=== PATIENT | female | born 1950 | race Caucasian/White ===

== ENCOUNTER → 2019-11-01 | Outpatient (CLI) | payer MEDICARE, BC ==
--- NOTE | 2019-11-01 11:28 | CARD ---
MR#: [id number] Date of Study: 11/01/2019 Ordering Physician: VICKY FISHMAN, Referring Physician: VICKY FISHMAN, Tech: Na Brown APPROVED REPORT EXAM: Two-dimensional and M-mode echocardiogram with Doppler and color Doppler. Other Information Quality : Average INDICATION Cardiac Disease: CAD RISK FACTORS Hypertension Hyperlipidemia 2D DIMENSIONS RVDd2.5 (2.9-3.5cm)Left Atrium(2D)2.7 (1.6-4.0cm) IVSd0.9 (0.7-1.1cm)Aortic Root(2D)3.3 (2.0-3.7cm) LVDd4.8 (3.9-5.9cm)LVOT Diameter1.9 (1.8-2.4cm) PWd0.8 (0.7-1.1cm)LVDs3.2 (2.5-4.0cm) FS (%) 32.9 %SV65.0 ml LVEF(%)61.4 (>50%) Aortic Valve AoV Peak Luca.129.2cm/sAoV VTI30.2cm AO Peak GR.6.7mmHgLVOT Peak Luca.112.6cm/s LVOT VTI 25.45cmAO Mean GR.4mmHg YEVGENIY (VMAX)2.27ss7GYN (VTI)2.42cm2 AI P 1/2 Dctr264gw Mitral Valve MV E Nwhtjkxl85.6cm/sMV DECEL FOYZ185aa MV A Hqlzoilk89.5cm/sE/A Ratio0.7 Pulmonary Valve PV Peak Rngypqaq09.1cm/sPV Peak Grad.3mmHg Tricuspid Valve TR P. Yyabkhbt001bc/sRAP YMFOPITV3lcXg TR Peak Gr.74mcLiCPWZ97asSr Pulmonary Vein S1 Gyrgmumn09.0cm/sD2 Jscjkdxd36.8cm/s LEFT VENTRICLE The left ventricle is normal size. There is normal left ventricular wall thickness. The left ventricu lar systolic function is normal. The Ejection Fraction is 60-65%. There is normal LV segmental wall m otion. Transmitral Doppler flow pattern is Grade I-abnormal relaxation pattern. RIGHT VENTRICLE The right ventricle is normal size. There is normal right ventricular wall thickness. The right ventr icular systolic function is normal. ATRIA The left atrium size is normal. The right atrium size is normal. The interatrial septum is intact wit h no evidence for an atrial septal defect or patent foramen ovale as noted on 2-D or Doppler imaging. AORTIC VALVE The aortic valve is normal in structure and function. Doppler and Color Flow revealed mild aortic reg urgitation. There is no significant aortic valvular stenosis. MITRAL VALVE The mitral valve is normal in structure and function. There is no evidence of mitral valve prolapse. There is no mitral valve stenosis. Doppler and Color Flow revealed no mitral valve regurgitation note d. TRICUSPID VALVE The tricuspid valve is normal in structure and function. Doppler and Color Flow revealed no tricuspid valve regurgitation noted with an estimated PAP of 27 mmHg. There is no tricuspid valve stenosis. PULMONIC VALVE The pulmonic valve is not well visualized. Doppler and Color Flow revealed no pulmonic valvular regur gitation. GREAT VESSELS The aortic root is normal in size. The ascending aorta is normal in size. The IVC is normal in size a nd collapses >50% with inspiration. PERICARDIAL EFFUSION There is no evidence of significant pericardial effusion. Critical Notification Critical Value: No <Conclusion> The left ventricular systolic function is normal. The Ejection Fraction is 60-65%. There is normal LV segmental wall motion. Transmitral Doppler flow pattern is Grade I-abnormal relaxation pattern. Doppler and Color Flow revealed mild aortic regurgitation. There is no evidence of significant pericardial effusion. Signed by : Jayson Agrawal, Electronically Approved : 11/01/2019 11:27:31
== END | disposition home or self-care (01) ==
LOC: ECHO 09:44
PROVIDERS: ATTEND Internal Medicine Cardiovascular Disease
DX: I35.1 Nonrheumatic aortic (valve) insufficiency (principal); I25.10 Atherosclerotic heart disease of native coronary artery without angina pectoris
CPT/HCPCS: 93306

== ENCOUNTER 2021-04-15 10:49 | Emergency (ER) | payer MEDICARE, BC ==
[~2021-04-15] VITALS: Ht 162.6 cm; Wt 64.5 kg
[2021-04-15 11:15] VITALS: BP 140/113
--- NOTE | 2021-04-15 11:28 | PHYS DOC ---
Past History Past Medical History: Cancer, CHF (TAO SANTOS DO) Past Surgical History: Hysterectomy, Other Additional Past Surgical Histo: cardiac stent (JESSICA SCOTT APRN) Alcohol Use: None (JESSICA SCOTT APRN) Smoking: Non-smoker Alcohol Use: None Drug Use: None (TAO SANTOS DO) General Adult EDM: Chief Complaint: ABDOMINAL PAIN HPI: HPI: Patient is a 70-year-old female who presents to the emergency department today for suprapubic pain that radiates to her left lower quadrant. Pain started 2 days ago but was worse overnight. Patient rates her current pain 1 out of 10. No treatment prior to arrival. Patient is also reporting fever and small amount of bright red blood in her bowel movement this morning. Patient denies nausea, vomiting, diarrhea, dysuria, cough, shortness of breath, sick exposures, recent travel. (JESSICA SCOTT APRN) Review of Systems: Review of Systems: 14 body systems of the review of systems have been reviewed. See HPI for pertinent positive and negative responses, otherwise all other systems are negative, nonpertinent or noncontributory (JESSICA SCOTT APRN) Allergies: Allergies: Allergies Coded Allergies Type Severity Reaction Last Updated Verified No Known Drug Allergies 04/15/21 No (JESSICA SCOTT APRN) Physical Exam: PE: Constitutional: Well developed, well nourished, no acute distress, non-toxic appearance. [] HENT: Normocephalic, atraumatic, bilateral external ears normal, oropharynx moist, no oral exudates, nose normal. [] Eyes: PERRL, EOMI, conjunctiva normal, no discharge. [] Neck: Normal range of motion, no stridor Cardiovascular:Heart rate regular rhythm, no murmur [] Lungs & Thorax: Bilateral breath sounds clear to auscultation [] Abdomen: Bowel sounds normal, soft, left lower quadrant tenderness with palpation, no masses, no pulsatile masses. [] Skin: Warm, dry, no erythema, no rash. [] Back: No tenderness, no CVA tenderness. [] Extremities: No tenderness, no cyanosis, no clubbing, ROM intact, no edema. [] Neurologic: Alert and oriented X 3, normal motor function, normal sensory function, no focal deficits noted. [] Psychologic: Affect normal, judgement normal, mood normal. [] (JESSICA SCOTT APRN) Current Patient Data: Labs: Laboratory Tests Test 04/15/21 11:34 04/15/21 12:10 04/15/21 12:28 White Blood Count 10.9 x10^3/uL Red Blood Count 4.80 x10^6/uL Hemoglobin 14.8 g/dL Hematocrit 44.5 % Mean Corpuscular Volume 93 fL Mean Corpuscular Hemoglobin 31 pg Mean Corpuscular Hemoglobin Concent 33 g/dL Red Cell Distribution Width 13.6 % Platelet Count 286 x10^3/uL Neutrophils (%) (Auto) 70 % Lymphocytes (%) (Auto) 21 % Monocytes (%) (Auto) 8 % Eosinophils (%) (Auto) 1 % Basophils (%) (Auto) 1 % Neutrophils # (Auto) 7.6 x10^3uL Lymphocytes # (Auto) 2.3 x10^3/uL Monocytes # (Auto) 0.8 x10^3/uL Eosinophils # (Auto) 0.1 x10^3/uL Basophils # (Auto) 0.1 x10^3/uL Sodium Level 139 mmol/L Potassium Level 3.7 mmol/L Chloride Level 103 mmol/L Carbon Dioxide Level 29 mmol/L Anion Gap 7 Blood Urea Nitrogen 13 mg/dL Creatinine 1.0 mg/dL Estimated GFR (Cockcroft-Gault) 54.7 BUN/Creatinine Ratio 13 Glucose Level 102 mg/dL Calcium Level 9.0 mg/dL Total Bilirubin 0.8 mg/dL Aspartate Amino Transf (AST/SGOT) 18 U/L Alanine Aminotransferase (ALT/SGPT) 22 U/L Alkaline Phosphatase 87 U/L Total Protein 8.0 g/dL Albumin 3.7 g/dL Albumin/Globulin Ratio 0.9 Lipase 40 U/L Stool Occult Blood Positive Urine Collection Type U cath Urine Color Rae Urine Clarity Cloudy Urine pH 6.0 Urine Specific Greene 1.015 Urine Protein Trace Urine Glucose (UA) Neg mg/dL Urine Ketones (Stick) Trace mg/dL Urine Blood Neg Urine Nitrite Neg Urine Bilirubin Small Urine Urobilinogen Dipstick 0.2 mg/dL Urine Leukocyte Esterase Small Urine RBC 1-2 /HPF Urine WBC 11-20 /HPF Urine Squamous Epithelial Cells Mod /LPF Urine Bacteria Few /HPF Urine Mucus Mod /LPF Current Medications Medications (Trade) Dose Ordered Sig/Leila Route PRN Reason Start Time Stop Time Status Last Admin Dose Admin Iohexol (Omnipaque 300 Mg/ml) 75 ml 1X ONCE IV 04/15/21 11:30 04/15/21 11:37 DC 04/15/21 12:15 Vital Signs: Vital Signs Date Time Temp Pulse Resp B/P (MAP) Pulse Ox O2 Delivery O2 Flow Rate FiO2 04/15/21 11:15 98.8 98 16 140/113 (122) 97 Room Air (JESSICA SCOTT APRN) EKG: EKG: [] (JESSICA SCOTT APRN) Radiology/Procedures: Radiology/Procedures: []PROCEDURE: CT ABD PELV W/ IV CONTRST ONLY EXAM: Abdomen and pelvis CT with intravenous contrast. HISTORY: Pain. TECHNIQUE: Computed tomographic images of the abdomen and pelvis were obtained following the administration of intravenous contrast. Multiplanar reformatting was performed. *One or more of the following individualized dose reduction techniques were utilized for this examination: 1. Automated exposure control. 2. Adjustment of the mA and/or kV according to patient size. 3. Use of iterative reconstruction technique. COMPARISON: None. FINDINGS: Evaluation of the lower thorax demonstrates no infiltrate or pleural effusion. There is calcified atherosclerotic plaque involving the coronary arteries. There is calcification of the bilateral valve annulus. There is hepati c steatosis. No focal hepatic lesion is seen. The gallbladder, pancreas, spleen, adrenal glands and kidneys are unremarkable. There is no appendicitis. There is no bowel obstruction. There is distal colonic diverticulosis. There is segmental wall thickening with surrounding inflammatory stranding and trace fluid involving the proximal sigmoid colon, consistent with acute diverticulitis. No drainable abscess is seen. There is no free air. The bladder is unremarkable. The uterus is absent. The aorta is normal in caliber. There is aortobiiliac atherosclerosis. There is no lymphadenopathy. There is no acute or suspicious osseous finding. IMPRESSION: 1. Acute diverticulitis involving the proximal sigmoid colon. No drainable collection is seen. 2. Hepatic steatosis. Electronically signed by: Annemarie Ram MD (04/15/2021 12:33 PM) [id number] DICTATED AND SIGNED BY: ANNEMARIE RAM MD DATE: 04/15/21 1227 CC: JESSICA SCOTT APRN; NINA NASH MD ~MTH0 0 (JESSICA SCOTT APRN) Heart Score: C/O Chest Pain: No Risk Factors: Risk Factors: DM, Current or recent (<one month) smoker, HTN, HLP, family history of CAD, obesity. Risk Scores: Score 0 - 3: 2.5% MACE over next 6 weeks - Discharge Home Score 4 - 6: 20.3% MACE over next 6 weeks - Admit for Clinical Observation Score 7 - 10: 72.7% MACE over next 6 weeks - Early Invasive Strategies (JESSICA SCOTT APRN) Course & Med Decision Making: Course & Med Decision Making Pertinent Labs and Imaging studies reviewed. (See chart for details) Patient presents to the emergency department for abdominal pain along with fever and blood in her stool today. Work-up in the ER consisted of blood work, urinalysis, CT scan of abdomen, fecal occult. Rectal exam showed gross blood, Hemoccult card sent. Remarkable CBC and CMP. CT scanning showed inflammatory stranding and trace fluid in the proximal sigmoid colon consistent with diverticulitis, without an abscess. Patient is able to tolerate oral intake as she does not report any nausea or vomiting. Patient's HINCHEY score is 0. Patient will be discharged home with antibiotics, nausea and pain medication and advised to do a liquid diet and follow-up with GI. She was given referral information [facility]. I discussed with patient all findings and diagnostic testing as well as the need to follow-up with PCP for further evaluation and treatment or return to the ER if any new or worsening symptoms. Strict return precautions were also discussed at length. Patient voiced understanding and agreement with the plan. Patient is hemodynamically stable at the time of disposition. (JESSICA SCOTT APRN) Dragon Disclaimer: Dragon Disclaimer: This electronic medical record was generated, in whole or in part, using a voice recognition dictation system. (JESSICA SCOTT APRN) Departure Departure: Impression: Primary Impression: Diverticulitis Disposition: HOME / SELF CARE / HOMELESS Condition: GOOD Referrals: NINA NASH MD (PCP) Patient Instructions: Diverticulitis Additional Instructions: You were seen in the emergency department today for abdominal pain. As we discussed, your imaging showed diverticulitis. This will be treated with an antibiotic. You are being discharged home with 2 antibiotics please make sure that you start and finish it completely. You are also being discharged home with nausea medication and pain medication. You can take this as needed. The pain medication may cause sedation so do not take when you need to be alert, driving a vehicle or with alcohol. Please note that any alcohol use with the antibiotics will cause severe vomiting. You should also stick to a liquid diet today. You should eat low fiber foods and avoid any foods that may make diverticulitis worse such as nuts, seeds. You need to follow-up with your GI doctor tomorrow regarding your ER visit. Return to the emergency department if you develop worsening of your pain, intractable nausea or vomiting, lightheadedness, high fevers refractory to treatment, large amounts of blood in your stools or any new or worsening concerns. EMERGENCY DEPARTMENT GENERAL DISCHARGE INSTRUCTIONS Thank you for coming to [facility] (ED) today and trusting us with you care. We trust that you had a positivie experience in our Emergency Department. If you wish to speak to the department management, you may call the director at [phone]. YOUR FOLLOW UP INSTRUCTIONS ARE FOLLOWS: 1. Do you have a private Doctor? If you do not have a private doctor, please ask for a resource list of physicians or clinics that may be able to assist you with follow up care. 2. The Emergency Physician has interpreted your x-rays. The X-Ray specialist will also review them. If there is a change in the findings, you will be notified in 48 hours when at all possible. 3. A lab test or culture has been done, your results will be reviewed and you will be notified if you need a change in treatment. ADDITIONAL INSTRUCTIONS AND INFORMATION: 1. Your care today has been supervised by a physician who is specially trained in emergency care. Many problems require more than one evaluation for a complete diagnosis and treatment. We recommend that you schedule your follow up appointment as recommended to ensure complete treatment of you illness or injury. If you are unable to obtain follow up care and continue to have a problem, or if your condition worsens, we recommend that you return to the ED. 2. We are not able to safely determine your condition over the phone nor are we able to give sound medical advice over the phone. For these safety reasons, if you call for medical advice we will ask you to come to the ED for further evaluation. 3. If you have any questions regarding these discharge instructions please call the ED at [phone]. SAFETY INFORMATION: In the interest of safety, wellness, and injury prevention; we encourage you to wear your sealbelt, if you smoke; quite smoking, and we encourage family to use a protective helmet for bicycling and other sporting events that present an increased risk for head injury. IF YOUR SYMPTOMS WORSEN OR NEW SYMPTOMS DEVELOP, OR YOU HAVE CONCERNS ABOUT YOUR CONDITION; OR IF YOUR CONDITION WORSENS WHILE YOU ARE WAITING FOR YOUR FOLLOW UP APPOINTMENT; EITHER CONTACT YOUR PRIMARY CARE DOCTOR, THE PHYSICIAN WHOSE NAME AND NUMBER YOU WERE GIVEN, OR RETURN TO THE ED IMMEDIATELY. Scripts Hydrocodone Bit/Acetaminophen (HYDROCODONE-APAP 5-325 ) 1 Each Tablet 1 TAB PO PRN Q6HRS PRN for PAIN for 2 Days, #8 TAB 0 Refills Prov: JESSICA SCOTT APRN 04/15/21 Ondansetron (ONDANSETRON ODT) 4 Mg Tab.rapdis 1 TAB PO PRN Q6-8HRS for NAUSEA for 5 Days, #20 TAB 0 Refills Prov: JESSICA SCOTT APRN 04/15/21 Ciprofloxacin Hcl (CIPROFLOXACIN HCL) 500 Mg Tablet 1 TAB PO BID for DIVERTICULITIS for 10 Days, #20 TAB 0 Refills Prov: JESSICA SCOTT APRN 04/15/21 Metronidazole (METRONIDAZOLE) 500 Mg Tablet 1 TAB PO TID for DIVERTICULITIS for 10 Days, #30 TAB 0 Refills Prov: JESSICA SCOTT APRN 04/15/21 Attending Signature Attending Signature I have reviewed the PA/INDEX EDITOR's note and plan of care. I was available for consultation as needed during the patient's visit in the emergency department. I agree with the clinical impression, plan, and disposition. (TAO SANTOS DO) JESSICA SCOTT APRN Apr 15, 2021 11:28 TAO SANTOS DO Apr 15, 2021 13:42
[2021-04-15] MEDS ORDERED: IOHEXOL 300 MG/ML 75 ML VIAL. IV ONE (11:30)
[2021-04-15 12:03] LABS: BASO # 0.1 x10^3/uL (0.0-0.2); BASO % 1 % (0-3); EOS # 0.1 x10^3/uL (0.0-0.7); EOS % 1 % (0-3); HEMATOCRIT 44.5 % (36.0-47.0); HEMOGLOBIN 14.8 g/dL (12.0-15.5); LYMPH # 2.3 x10^3/uL (1.0-4.8); LYMPH % 21 % (24-48); MEAN CORPUSCULAR HEMOGLOBIN 31 pg (25-35); MEAN CORPUSCULAR HGB CONC 33 g/dL (31-37); MEAN CORPUSCULAR VOLUME 93 fL (79-100); MONO # 0.8 x10^3/uL (0.0-1.1); MONO % 8 % (0-9); NEUT # 7.6 x10^3uL (1.8-7.7); NEUT % 70 % (31-73); PLATELET COUNT 286 x10^3/uL (140-400); RED CELL DISTRIBUTION WIDTH 13.6 % (11.5-14.5); WHITE BLOOD COUNT 10.9 x10^3/uL (4.0-11.0)
[2021-04-15 12:05] LABS: GFR 54.7; POTASSIUM 3.7 mmol/L (3.5-5.1)
[2021-04-15 12:11] LABS: ALBUMIN 3.7 g/dL (3.4-5.0); ALBUMIN/GLOBULIN RATIO 0.9 (1.0-1.7); TOTAL BILIRUBIN 0.8 mg/dL (0.2-1.0)
[2021-04-15 12:30] LABS: FECAL OB PT POSITIVE (NEG)
--- NOTE | 2021-04-15 12:36 | RAD ---
EXAM: Abdomen and pelvis CT with intravenous contrast. HISTORY: Pain. TECHNIQUE: Computed tomographic images of the abdomen and pelvis were obtained following the administ ration of intravenous contrast. Multiplanar reformatting was performed. *One or more of the following individualized dose reduction techniques were utilized for this examina tion: 1. Automated exposure control. 2. Adjustment of the mA and/or kV according to patient size. 3. Use of iterative reconstruction technique. COMPARISON: None. FINDINGS: Evaluation of the lower thorax demonstrates no infiltrate or pleural effusion. There is makayla cified atherosclerotic plaque involving the coronary arteries. There is calcification of the bilatera l valve annulus. There is hepatic steatosis. No focal hepatic lesion is seen. The gallbladder, pancre as, spleen, adrenal glands and kidneys are unremarkable. There is no appendicitis. There is no bowel obstruction. There is distal colonic diverticulosis. Ther e is segmental wall thickening with surrounding inflammatory stranding and trace fluid involving the proximal sigmoid colon, consistent with acute diverticulitis. No drainable abscess is seen. There is no free air. The bladder is unremarkable. The uterus is absent. The aorta is normal in caliber. There is aortobiiliac atherosclerosis. There is no lymphadenopathy. There is no acute or suspicious osseou s finding. IMPRESSION: 1. Acute diverticulitis involving the proximal sigmoid colon. No drainable collection is seen. 2. Hepatic steatosis. Electronically signed by: Annemarie Tamayo MD (04/15/2021 12:33 PM) [id number]
[2021-04-15 12:51] LABS: BILIRUBIN,URINE SMALL (NEG); CLARITY,URINE CLOUDY; COLOR,URINE AMBER; GLUCOSE,URINE NEG (NEG)
[2021-04-15 12:52] LABS: BACTERIA,URINE FEW /HPF (0-FEW); NITRITE,URINE NEG (NEG); SQUAMOUS EPITHELIAL CELL,UR MOD /LPF; UROBILINOGEN,URINE 0.2 mg/dL (0.2 mg/dL)
[2021-04-15] MEDS ORDERED: ONDA4TAB12 PO (13:01)
[2021-04-15] MEDS ORDERED: HYDR-2155 PO (13:01)
[2021-04-15] MEDS ORDERED: CIPR500T2 PO (13:01)
[2021-04-15] MEDS ORDERED: METR-34 PO (13:01)
== END 2021-04-15 13:45 | disposition home or self-care (01) ==
LOC: ER 10:49
DX: K57.32 Diverticulitis of large intestine without perforation or abscess without bleeding (principal); I50.9 Heart failure, unspecified; Z90.710 Acquired absence of both cervix and uterus
CPT/HCPCS: 36415; 74177; 80053; 81001; 82274; 83690; 85025; 87086; 99285; Q9967

== ENCOUNTER → 2021-04-15 | Outpatient (CLI) | payer MEDICARE, BC ==
[~2021-04-15] MED LIST: CIPR500T2 PO; HYDR-2155 PO; METR-34 PO; ONDA4TAB12 PO
[2021-04-15 11:15] VITALS: BP 140/113
== END ==
LOC: LAB 12:14
PROVIDERS: ATTEND Internal Medicine Cardiovascular Disease
DX: I25.10 Atherosclerotic heart disease of native coronary artery without angina pectoris (principal)
CPT/HCPCS: 80061